=== PATIENT | female | born 1950 | race Caucasian/White ===

== ENCOUNTER 2017-01-08 06:56 | Observation (INO) ==
--- NOTE | 2017-01-08 07:35 | Emergency Department Note ---
Disposition Clinical Impression: Sinus tachycardia Chest pain Qualifiers: Chest pain type: unspecified Qualified Code(s): R07.9 - Chest pain, unspecified Disposition: Admitted As Inpatient Condition: Good Referrals: Kenneth Caballero DO [Primary Care Provider] - Forms: ED Satisfaction Letter General Adult HPI - General Chief complaint: ED Arrhythmia/Palpitations Stated complaint: "Got the racing heart" Time Seen by Provider: 01/08/17 07:17 Source: patient Limitations: no limitations Nursing Notes Reviewed: Yes Vital Signs Reviewed: Yes - History of Present Illness HPI Narrative: 66-year-old female who reports sudden onset of palpitations at 6 AM this morning. Onset while she was sleeping. It woke her up from sleep. She reports that this is happening her 2 times before in the past and she has been seen and discharged. She states this is similar to the prior 2 times. She is seeing her primary care physician about this as she is been diagnosed with sinus tachycardia. She takes metoprolol 25 mg twice a day. She denies missing any doses. She denies any caffeine use whatsoever. She also denies any illicit drug use. Other medical problems include diabetes, hyperlipidemia. She denies any dlep-ars-xaijsyl cold medications. She denies having any current chest pain, but had some earlier this morning. She denies a history of ischemic cardiac disease. She has no stents or bypass. She does not have a pacer defibrillator. She denies any recent illness except taking that she might be "getting a cold". This happened initially about a year ago and then a follow-up about 6 months ago. Pain Scale: 0 Improves with: nothing Worsens with: nothing Treatments Prior to Arrival: none - Related Data Home Medications Medication Instructions Recorded Confirmed GlipiZIDE [Glipizide ER] 10 mg PO DAILY 01/08/17 01/08/17 Metoprolol [Lopressor] 25 mg PO BID 01/08/17 01/08/17 Potassium Chloride [K-Tab ER] 20 meq PO DAILY 01/08/17 01/08/17 hydroCHLOROthiazide 25 mg PO DAILY 01/08/17 01/08/17 [Hydrochlorothiazide] Allergies Allergy/AdvReac Type Severity Reaction Status Date / Time Sulfa (Sulfonamide Allergy Hives Verified 07/13/16 20:02 Antibiotics) Tetracycline Allergy Hives Verified 07/13/16 20:02 All systems ED: reviewed and negative except as stated. Constitutional: Denies: fever ENT ED: Denies: throat pain Cardiovascular: Reports: palpitations. Denies: chest pain, dyspnea on exertion Respiratory: Denies: cough, dyspnea Gastrointestinal: Denies: abdominal pain, nausea, vomiting Genitourinary: Denies: dysuria Musculoskeletal: Denies: back pain Integumentary: Denies: rash Neurological: Denies: headache Endocrine: Denies: fatigue Past Medical History - Past Medical History Medical history: Reports: diabetes, hypertension Psychiatric history: Reports: no psych history - Social History Smoking Status: Never smoker Smokeless Tobacco Status: No Alcohol use: Reports: none Drug use: Reports: none Physical Exam - General Limitations: no limitations General appearance: alert, in no apparent distress - Head Head exam: atraumatic - Eye Eye exam: Present: normal appearance, PERRL - ENT ENT exam: normal exam, normal oropharynx - Neck Neck exam: Present: normal inspection - Chest Chest inspection: Present: normal inspection - Respiratory Respiratory exam: Present: normal lung sounds bilaterally. Absent: respiratory distress - Cardiovascular Cardiovascular exam: Present: normal rhythm, tachycardia - Abdominal Exam Abdominal exam: Present: soft, Non-Tender - Extremities Exam Extremities exam: Present: normal inspection - Back Exam Back exam: Present: normal inspection - Neurological Exam Neurological exam: Present: alert, oriented X3 - Psychiatric Psychiatric exam: Present: normal affect, normal mood - Skin Skin exam: Present: warm, dry Course Course Narrative: We will do a cardiac evaluation reevaluate. EKG shows sinus tachycardia with a rate of 132. VT interval is not shortened. There is no ST deviation. No T- wave inversions or signs of ischemia. Tachycardia did not resolve after lopressor or labetalol. Currently symptom free. Will admit for CP rule out and if needed a cardiology consult. Vital Signs Temperature 97.6 F 01/08/17 06:57 Pulse Rate 130 01/08/17 06:57 Respiratory Rate 20 01/08/17 06:57 Blood Pressure 157/98 01/08/17 06:57 O2 Sat by Pulse Oximetry 96 01/08/17 06:57 Temperature 97.6 F 01/08/17 06:57 Pulse Rate 119 01/08/17 09:05 Respiratory Rate 18 01/08/17 09:05 Blood Pressure 165/81 01/08/17 09:05 O2 Sat by Pulse Oximetry 96 01/08/17 09:05 Oxygen Delivery Oxygen Delivery Nasal Cannula Medical Decision Making - Medical Records Medical records reviewed: Yes I reviewed the patient's medical records. - Lab Data Lab results reviewed: Yes I reviewed the patient's lab results. Result diagrams: 01/08/17 07:55 01/08/17 07:55 Lab Results 01/08/17 01/08/17 01/08/17 Range/Units 07:55 07:55 07:55 WBC 7.2 (4.3-11.1) K/mcL RBC 4.62 (3.82-4.97) M/mcL Hgb 12.9 (11.5-15.4) g/dL Hct 40.5 (35.3-44.9) % MCV 87.7 (83.0-100.0) fL MCH 27.9 L (28.0-33.3) pg MCHC 31.9 (31.6-35.5) g/dL RDW 13.3 (11.5-14.5) % Plt Count 238 (140-400) K/mcL MPV 10.2 (9.4-12.4) fL Immature Gran % 0.3 (0-4) % Seg Neutrophils % 66.8 % Lymphocytes % 23.5 % Monocytes % 8.0 % Eosinophils % 0.8 % Basophils % 0.6 % Neutrophils # 4.8 (1.6-8.9) K/mcL Lymphocytes # 1.7 (0.6-4.6) K/mcL Monocytes # 0.6 (0.0-1.3) K/mcL Eosinophils # 0.1 (0.0-0.6) K/mcL Basophils # 0.0 (0.0-0.2) K/mcL PT 10.7 (9.4-12.1) Seconds INR 1.0 APTT 28.3 (26.0-36.0) Seconds D-Dimer (0-500) ng/mLFEU Sodium 138 (136-145) mEq/L Potassium 3.8 (3.5-4.5) mEq/L Chloride 101 (98-109) mEq/L Carbon Dioxide 27 (19-29) mEq/L BUN 11 (7-20) mg/dL Creatinine 0.69 (0.57-1.11) mg/dL Est GFR ( Amer) > 60 (> 60) Est GFR (Non-Af Amer) > 60 (> 60) BUN/Creatinine Ratio 16 (6-26) Glucose 186 H (70-99) mg/dL Calculated Osmolality 290 (280-300) Calcium 9.4 (8.6-10.8) mg/dL Troponin I (0-0.03) ng/mL TSH 1.743 (0.350-4.840) mcIU/mL 01/08/17 01/08/17 Range/Units 07:55 07:55 WBC (4.3-11.1) K/mcL RBC (3.82-4.97) M/mcL Hgb (11.5-15.4) g/dL Hct (35.3-44.9) % MCV (83.0-100.0) fL MCH (28.0-33.3) pg MCHC (31.6-35.5) g/dL RDW (11.5-14.5) % Plt Count (140-400) K/mcL MPV (9.4-12.4) fL Immature Gran % (0-4) % Seg Neutrophils % % Lymphocytes % % Monocytes % % Eosinophils % % Basophils % % Neutrophils # (1.6-8.9) K/mcL Lymphocytes # (0.6-4.6) K/mcL Monocytes # (0.0-1.3) K/mcL Eosinophils # (0.0-0.6) K/mcL Basophils # (0.0-0.2) K/mcL PT (9.4-12.1) Seconds INR APTT (26.0-36.0) Seconds D-Dimer 340 (0-500) ng/mLFEU Sodium (136-145) mEq/L Potassium (3.5-4.5) mEq/L Chloride (98-109) mEq/L Carbon Dioxide (19-29) mEq/L BUN (7-20) mg/dL Creatinine (0.57-1.11) mg/dL Est GFR ( Amer) (> 60) Est GFR (Non-Af Amer) (> 60) BUN/Creatinine Ratio (6-26) Glucose (70-99) mg/dL Calculated Osmolality (280-300) Calcium (8.6-10.8) mg/dL Troponin I 0.00 (0-0.03) ng/mL TSH (0.350-4.840) mcIU/mL - Radiology Data Radiology results reviewed: Yes I reviewed the patient's radiology results. - EKG Data EKG #1 EKG attestation: Yes I reviewed and interpreted this EKG. EKG shows normal: sinus rhythm Rate: tachycardia Rhythm: NSR [place]/QRS: normal Interpretation: other (Sinus tachycardia)
[2017-01-08] MEDS ORDERED: *HR* Labetalol 20 MG/4 ML SYRINGE IVP ONE (07:49)
--- NOTE | 2017-01-08 08:01 | Emergency Department Note ---
START Narrative - START START: I examined this patient and my medical decision-making was reviewed with the Resident Physician. I agree with the documented findings, disposition and treatment plan as described except to the extent set forth below. 66yo F here for heart racing and palpitations. hx of same about 6 months ago. woke pt up from her sleep. no chest pain. no sob. she denies any dvt or pe. no thyroid history. no supplements or energy drinks. no smoking or drugs. she takes daily lopressor for similar episode in past. will workup with labs, cxr, ekg. she appears well. no distress
[2017-01-08 08:07] LABS: Basophils % 0.6 %; Eosinophils # 0.1 K/mcL (0.0-0.6); Eosinophils % 0.8 %; Hematocrit 40.5 % (35.3-44.9); Hemoglobin 12.9 g/dL (11.5-15.4); Immature Granulocytes % 0.3 % (0-4); Lymphocytes # 1.7 K/mcL (0.6-4.6); Lymphocytes % 23.5 %; Mean Corpuscular HGB Conc 31.9 g/dL (31.6-35.5); Mean Corpuscular Hemoglobin 27.9 pg (28.0-33.3); Mean Corpuscular Volume 87.7 fL (83.0-100.0); Mean Platelet Volume 10.2 fL (9.4-12.4); Monocytes # 0.6 K/mcL (0.0-1.3); Neutrophils # 4.8 K/mcL (1.6-8.9); Platelet Count 238 K/mcL (140-400); Red Blood Count 4.62 M/mcL (3.82-4.97); Red Cell Distribution Width 13.3 % (11.5-14.5); Segmented Neutrophils % 66.8 %
[2017-01-08 08:08] LABS: Prothrombin Time 10.7 Seconds (9.4-12.1)
[2017-01-08 08:11] LABS: Activated Partial Thrombo Time 28.3 Seconds (26.0-36.0)
[2017-01-08 08:40] LABS: Thyroid Stimulating Hormone 1.743 mcIU/mL (0.350-4.840)
[2017-01-08 08:55] LABS: BUN/Creatinine Ratio 16 (6-26); Blood Urea Nitrogen 11 mg/dL (7-20); Calcium 9.4 mg/dL (8.6-10.8); Carbon Dioxide 27 mEq/L (19-29); Chloride 101 mEq/L (98-109); Glucose 186 mg/dL (70-99); Osmolality,Calculated 290 (280-300); Potassium 3.8 mEq/L (3.5-4.5); Sodium 138 mEq/L (136-145); eGFR For African Americans > 60 (> 60); eGFR For Non-African Americans > 60 (> 60)
[2017-01-08] MEDS: *HR* Metoprolol 5 MG/5 ML VIAL IVP ONE (09:31)
[2017-01-08] MEDS ORDERED: Ondansetron 4 MG/2 ML VIAL IVP PRN (13:00)
[2017-01-08] MEDS ORDERED: Acetaminophen 325 MG TABLET PO PRN (13:00)
[2017-01-08] MEDS ORDERED: Naloxone 0.4 MG/ML INJ IVP PRN (13:00)
[2017-01-08] MEDS ORDERED: D5% in Water 1,000 ML IVC PRN (13:09)
[2017-01-08] MEDS ORDERED: *HR* Dextrose 50 % in Water (Syg) 50 ML SYRINGE IVP PRN (13:09)
[2017-01-08] MEDS ORDERED: Dextrose Gel 15 GM PO PRN ×2 (13:09)
[2017-01-08] MEDS ORDERED: Nitroglycerin 0.4 MG TAB.SUBL SL PRN (13:11)
[2017-01-08 13:24] LABS: Magnesium 1.9 mg/dL (1.6-2.6)
--- NOTE | 2017-01-08 13:24 | Internal Med History&Physical ---
<Alexandrea Donovan - Last Filed: 01/08/17 13:39> Date of Encounter: 01/08/17 Time of Encounter: 13:12 Assessment and Plan (1) Chest pain Current visit: Yes Status: Acute 1 patient has been experiencing intermittent chest pain as well as palpitations. She has a history of tachycardia and presented today with heart rate of 130 to 140-she was given labetalol as well as l Lopressor which did improve her rate. She did have a cardiac stress test in September which was negative for ischemia Cardiac troponin was 0 which we will continue to trend 2 continuous cardiac monitoring 3 we will obtain a cardiac echo 4 continue with metoprolol and statin we will check lipid profile we will add aspirin 5 nitroglycerin as needed for chest pain 6 consult cardiology Qualifiers: Chest pain type: unspecified Qualified Code(s): R07.9 - Chest pain, unspecified (2) Sinus tachycardia Current visit: Yes Status: Acute 1 patient has had a history of sinus tachycardia was placed on metoprolol 25 mg twice a day. She has been experiencing intermittent chest pain and palpitations. On presentation her heart rate was 130-140. We will increase her metoprolol to 50 mg twice a day 2 continue his cardiac monitoring 3 obtain cardiac echo 4 consult cardiology (3) HTN (hypertension) Current visit: Yes Status: Acute 1 patient did experience some elevated blood pressure during tachycardic episode. We will continue with her hydrochlorothiazide and increase her metoprolol to 50 mg twice a day Qualifiers: Hypertension type: essential hypertension Qualified Code(s): I10 - Essential (primary) hypertension Internal Medicine - H&P: HPI Chief complaint: Palpitations Admitted From: Emergency Dept Plans for Post Hospital Care: Home History of present illness: Ms. Booth is a 66 year old female has no history of hypertension diabetes hyperlipidemia tachycardia. According the patient she was awakened approximately 5 AM this morning said she did not feel very well somewhat nauseated she did check her blood pressure was 1 2928 her heart rate is 131 she rechecked it again, heart rate was 140 at that time. She did experience some slight left-sided chest pain which she states was fleeting. There were no aggravating or relieving factors it is nonradiating it resolved on its own. She does admit to previous history of tachycardia. Earlier in the year she was experiencing palpitations she did wear a Holter monitor which did not reveal any arrhythmias. She did undergo a cardiac stress in September which was negative for ischemia. She was placed on metoprolol 25 mg twice a day which she states has controlled her palpitations until this past Thursday. She denies any use of caffeine, diet pills, or other stimulants. 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 She states since this Thursday she has not felt well she has just felt off. She has had intermittent nausea lightheadedness and chest pain. She presented to the ER with the above complaints. Upon presentation patient's heart rate was 130s sinus. She was given labetalol as well as IV metoprolol which did bring down her heart rate. Labwork was obtained and was unremarkable troponin was 0. EKG sinus tachycardia with no ST-T wave abnormalities noted. Chest x-ray was negative. She has been admitted for further workup evaluation. Presently patient denies any chest pain or shortness of breath she does appear the restaurant distress. Her lung sounds are clear heart sounds are regular S1 and S2 with no rubs, gallops murmurs noted. Abram heart rate is in the 90s blood pressure was systolic 160s. She denies any palpitations. I reviewed this case with Dr. Meng who agrees with the case. Past Med Surg Social Fam HX - Past Medical History Medical history: diabetes, hypertension Psychiatric history: no psych history - Social History Smoking Status: Never smoker Smokeless Tobacco Status: No Alcohol use: none Drug use: none - Family History Mother Living Status: Hx Family Cardiac Disorders: Yes (cad) Father Living Status: Hx Family Cardiac Disorders: Yes (CAD) Internal Medicine - H&P: Meds GlipiZIDE [Glipizide ER] 10 mg PO DAILY 01/08/17 [History] Metoprolol [Lopressor] 25 mg PO BID 01/08/17 [History] Potassium Chloride [K-Tab ER] 20 meq PO DAILY 01/08/17 [History] hydroCHLOROthiazide [Hydrochlorothiazide] 25 mg PO DAILY 01/08/17 [History] 3 Allergy/AdvReac Type Severity Reaction Status Date / Time Sulfa (Sulfonamide Allergy Hives Verified 07/13/16 20:02 Antibiotics) Tetracycline Allergy Hives Verified 07/13/16 20:02 All Systems PM: A 10-system review of systems was performed and is negative for pertinent findings except as documented above in the HPI. - Constitutional Constitutional: no chills, no fever(s), no night sweats - EENT Eyes: no change in vision, no discharge, no pain, no photophobia Ears: no ear discharge, no ear pain, no tinnitus Nose, mouth and throat: no dysphagia, no nasal discharge, no neck pain, no sore throat - Cardiovascular Cardiovascular ROS IM: chest pain, lightheadedness, palpitations - Respiratory Respiratory: no cough, no dyspnea, no wheezing, no excessive phlegm production - Gastrointestinal Gastrointestinal: no abdominal pain, no diarrhea, no hematemesis, no hematochezia, no melena, no nausea, no vomiting - Genitourinary Genitourinary: no change in urinary stream, no dysuria, no flank pain, no hematuria - Musculoskeletal Musculoskeletal ROS IM: no numbness, no tingling - Integumentary Integumentary IM: no rash, no unusual bruising - Neurological Neurological ROS: no confusion, no convulsions, no focal weakness, no numbness, no tingling, no tremor(s) - Hematologic/Lymphatic Hematologic/Lymphatic: no easy bruising - Constitutional Vitals: Temp Pulse Resp BP Pulse Ox 97.6 F 81 18 160/89 96 01/08/17 06:57 01/08/17 10:35 01/08/17 11:24 01/08/17 11:24 01/08/17 10:35 General appearance: Present: A&O X 3 - Head Head exam: Present: atraumatic, normocephalic - Eye Eye exam: Present: PERRL, conjuntiva pink, sclera anicteric Pupils: Present: PERRL - Neck Neck exam general surgery: Present: supple, trachea midline. Absent: lymphadenopathy - Respiratory Respiratory exam: Present: CTAB. Absent: accessory muscle use, rales, rhonchi, wheezes - Cardiovascular Cardiovascular exam: Present: RRR, +S1, +S2. Absent: diastolic murmur, gallop, rubs, systolic murmur - GI/Abdominal GI/Abdominal exam: Present: normal bowel sounds, soft, no peritoneal signs. Absent: distended, tenderness - Extremities Exam Extremities exam: Present: warm, radial pulses palpable and symmetrical. Absent : calf tenderness, cyanotic, pedal edema - Neurological Exam Neurological exam: Present: CN II-XII intact, oriented X3, no focal deficits. Absent: pronater drift, facial droop, speech deficit - Skin Skin exam: Present: dry, intact Internal Med - H&P Results - Labs CBC & Chem 7: 01/08/17 07:55 01/08/17 07:55 - EKG Data Rate: tachycardia - EKG Data Prior EKG available for review: yes When compared to previous EKG: there is no significant change - Diagnostic Studies Other Images Additional comments: Chest X-Ray 01/08/17 07:18 IMPRESSION: No acute cardiopulmonary disease D/ / Piotr Cohen MD / Piotr Cohen MD Interpreting Provider: Piotr Cohen MD <Jose Meng - Last Filed: 01/08/17 18:01> Date of Encounter: 01/08/17 Internal Medicine - H&P: HPI History of present illness: Ms. Booth is a 66 year old female All Systems PM: A 10-system review of systems was performed and is negative for pertinent findings except as documented above in the HPI. - Constitutional Vitals: Temp Pulse Resp BP Pulse Ox 97.6 F 81 18 160/89 96 01/08/17 06:57 01/08/17 10:35 01/08/17 11:24 01/08/17 11:24 01/08/17 10:35 Internal Med - H&P Results - Labs CBC & Chem 7: 01/08/17 07:55 01/08/17 07:55 Labs: Cardiac Enzymes 01/08/17 Range/Units 13:41 Troponin I 0.00 (0-0.03) ng/mL - Attending Attestation I personally interviewed and examined this pt. I reviewed all labs and studies. I agree with the findings, assessment and plan of LINA Donovan. Agree with increasing BB> Due to recurrent nature of SVT will consult cardiology. PT currently improved.
[2017-01-08] MEDS ORDERED: Aspirin 325 MG TABLET PO ONE (13:40)
[2017-01-08] MEDS: Insulin LISPRO 300 UNITS/3 ML VIAL SQ SCH (18:16)
[2017-01-08] MEDS ORDERED: Insulin LISPRO 300 UNITS/3 ML VIAL SQ SCH (21:00)
[2017-01-09 05:26] LABS: Basophils % 0.4 %; Eosinophils # 0.1 K/mcL (0.0-0.6); Eosinophils % 0.9 %; Hemoglobin 12.3 g/dL (11.5-15.4); Immature Granulocytes % 0.3 % (0-4); Lymphocytes # 2.6 K/mcL (0.6-4.6); Lymphocytes % 28.7 %; Mean Corpuscular HGB Conc 32.4 g/dL (31.6-35.5); Mean Corpuscular Volume 86.6 fL (83.0-100.0); Mean Platelet Volume 10.5 fL (9.4-12.4); Monocytes # 0.8 K/mcL (0.0-1.3); Monocytes % 9.3 %; Neutrophils # 5.4 K/mcL (1.6-8.9); Platelet Count 259 K/mcL (140-400); Red Blood Count 4.39 M/mcL (3.82-4.97); Red Cell Distribution Width 13.3 % (11.5-14.5); Segmented Neutrophils % 60.4 %
[2017-01-09 05:42] LABS: BUN/Creatinine Ratio 15 (6-26); Blood Urea Nitrogen 10 mg/dL (7-20); Calcium 9.3 mg/dL (8.6-10.8); Carbon Dioxide 27 mEq/L (19-29); Chloride 102 mEq/L (98-109); Cholesterol 127 mg/dL (< 200); Glucose 178 mg/dL (70-99); HDL Cholesterol 43 mg/dL (40-59); LDL Cholesterol,Calculated 60 mg/dL (0-99); Magnesium 1.6 mg/dL (1.6-2.6); Osmolality,Calculated 287 (280-300); Potassium 3.7 mEq/L (3.5-4.5); Sodium 137 mEq/L (136-145); Triglycerides 119 mg/dL (< 150); eGFR For African Americans > 60 (> 60); eGFR For Non-African Americans > 60 (> 60)
[2017-01-09] MEDS: Insulin LISPRO 300 UNITS/3 ML VIAL SQ SCH ×2 (08:38→12:12)
[2017-01-09] MEDS ORDERED: hydroCHLOROthiazide 25 MG TABLET PO SCH (09:00)
[2017-01-09] MEDS ORDERED: Aspirin 81 MG TAB.CHEW PO SCH (09:00)
[2017-01-09 11:14] VITALS: BP 153/88
--- NOTE | 2017-01-09 11:19 | Cardiology Consult Note ---
Date of Encounter: 01/09/17 Time of Encounter: 09:30 Assessment and Plan (1) Chest pain Current Visit: Yes Status: Resolved -atypical presentation of chest pain, doesn't appear to be cardiac in origin. -troponins 0.00 x2 -EKG shows paroxysmal atrial tachycardia, no ischemic changes -(10/21/16) Echo largely unremarkable -LVEF 65%; normal LV size, LV systolic function, and mild diastolic dysfunction of LV; no significant valvular dysfunction; all LV wall segments normal motion -Nuclear stress test -(07/28/16) no significant EKG changes; gated LVEF > 70%; perfusion imaging negative for ichemia or infarct -(02/24/11) LV not dilated; gated EF 75%; no evidence stress-induced ischemia ; no wall motion abnormalities -48h Holter monitor -(07/09/16) baseline rhythm is normal sinus; occasional PVCs -scheduled for outpatient f/u with [facility] cardiology (2) Atrial tachycardia Current Visit: Yes Status: Acute -resolved, pt's heart rate now stable in range of 85-95 bpm -increased dose of metoprolol (now 50mg PO BID) to aid in lowering heart rate (3) HTN (hypertension) Current Visit: Yes Status: Chronic -Blood pressure not at goal for a diabetic, increased metoprolol to 50mg PO BID and continue HCTZ at 25mg PO daily. Qualifiers: Hypertension type: essential hypertension Qualified Code(s): I10 - Essential (primary) hypertension Discussion w patient/family: The assessment and plan as outlined above was discussed with the patient and/or family members who expressed understanding and agreement. All questions were answered. Thank you for involving us in the care of your patient. Please call with any questions. History of Present Illness Consult date: 01/09/17 Consult reason: chest pain, sinus tachycardia Chief complaint: "heart racing" History of present illness: Ms. Booth is a 66 year old female with PMH of HTN, HLD, and IDDM who presented to [facility] ED 01/08 with c/o "heart racing" and palpitations that she noticed earlier that morning when getting out of bed to go pee. Pt also c/o Lt- sided chest pain described as stabbing, intermittent, and doesn't radiate. She states nothing improved or worsened her symptoms, chest pain stopped on its own. Pt has been seen in ED twice (04/2016 and 08/2015) for similar complaints. She denies h/o using tobacco, illicit drugs, EtOH, diet pills, energy drinks; has 2 cups decaffeinated coffee a day at home. Admits associated nausea and diaphoresis & denies associated emesis and dyspnea yesterday. Pt admitted to inpatient by hospitalists, cardiology consulted for cardiac evaluation of her chest pain and tachycardia. Troponins negative x 2. Today, pt admits non- productive cough at her baseline and dyspnea on exertion. Pt currently denies chest pain, chest pressure, lower extremity edema, palpitations, and wheezing. Past Med Surg Social Fam HX - Past Medical History Medical history: diabetes, hypertension Psychiatric history: no psych history - Social History Smoking Status: Never smoker Smokeless Tobacco Status: No Alcohol use: none Drug use: none - Family History Mother Living Status: Hx Family Cardiac Disorders: Yes (cad) Father Living Status: Hx Family Cardiac Disorders: Yes (CAD) Medications and Allergies GlipiZIDE [Glipizide ER] 10 mg PO DAILY 01/08/17 [History] Potassium Chloride [K-Tab ER] 20 meq PO DAILY 01/08/17 [History] hydroCHLOROthiazide [Hydrochlorothiazide] 25 mg PO DAILY 01/08/17 [History] Metoprolol [Lopressor] 50 mg PO BID #60 tab 01/09/17 [Rx] 3 Allergy/AdvReac Type Severity Reaction Status Date / Time Sulfa (Sulfonamide Allergy Hives Verified 07/13/16 20:02 Antibiotics) Tetracycline Allergy Hives Verified 07/13/16 20:02 All Systems Review: A 10-system review of systems was performed and is negative for pertinent findings except as documented above in the HPI. - Constitutional Constitutional: chills (last night), no fever(s), no night sweats - Cardiovascular Cardiovascular: as per HPI, dyspnea on exertion (last night walking to bathroom from bed), rapid heart rate, no chest pain with exertion, no diaphoresis, no leg edema - Respiratory Respiratory: cough (baseline for pt, non productive), dyspnea (last night walking to bathroom from bed) - Gastrointestinal Gastrointestinal: nausea, other (denies emesis), no abdominal pain, no constipation, no diarrhea Physical Examination Vital Signs, Last 4 Hours Temp Pulse Resp BP Pulse Ox 01/09/17 11:09 98.0 F 85 16 153/88 96 General: Conversant, No Apparent Distress HEENT: Mucus Membranes Moist Cardiac: Reg Rate and Rhythm, Normal S1 and S2, No Murmur Lungs: Normal Breath Sounds, No Wheeze, Rales, Rhonchi, Other (normal respiratory effort) Neuro: Alert and responsive, No focal deficits noted Skin: No rashes noted on visualized skin Musculoskeletal: No Chest Wall Tenderness, Other (unable to illicit "stabbing" pain ) Extremities: No Cyanosis, No Edema, Normal Pulses (palpable b/l radial and dorsalis pedis ) Results 01/09/17 04:44 01/09/17 04:44 Lab Results-reviewed 01/08/17 01/08/17 01/09/17 13:41 20:06 04:44 WBC 9.0 Hgb 12.3 Hct 38.0 Plt Count 259 Sodium Potassium Chloride Carbon Dioxide BUN Creatinine Glucose Calcium Magnesium Troponin I 0.00 0.00 01/09/17 04:44 WBC Hgb Hct Plt Count Sodium 137 Potassium 3.7 Chloride 102 Carbon Dioxide 27 BUN 10 Creatinine 0.65 Glucose 178 H Calcium 9.3 Magnesium 1.6 Troponin I - Imaging and Cardiology Chest Xray: report reviewed (No acute cardiopulmonary dz; compared with CXR 09/24) Stress Test: other (02/24/11 stress test report reviewed 07/28/16 stress test report reviewed) Echo: other (10/22/15 echo report reviewed) Holter: other (07/09/16 48h Holter monitor report reviewed) - EKG Interpretation EKG results cardiology: personally reviewed, other (tachycardic 132 bpm; inverted P waves noted in II and aVF; normal axis) Consult Discharge Plan - Plan Additional Instructions: Please follow up with your primary care physician within five days after your discharge from the hospital. 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 Your home dose of Metoprolol has been increased to 50mg twice a day, please take this medication as prescribed. Please closely monitor your blood pressure, hold your blood pressure medications (Metoprolol and Hydrocholorthiazide) if you systolic blood pressure is less than 100 and inform your primary care physician. Resume all other home medications as prescribed by your primary care physician. Referrals: Moises Newton MD [Partnered Physician] - 02/04/17 10:30 am Kenneth Caballero DO [Primary Care Provider] - 01/16/17 12:00 pm Prescriptions: Metoprolol [Lopressor] 50 mg PO BID #60 tab
--- NOTE | 2017-01-09 14:06 | Discharge Summary ---
Date of Encounter: 01/09/17 Time of Encounter: 14:02 - Discharge Diagnosis (1) Sinus tachycardia Priority: Primary Status: Resolved (2) Chest pain Priority: Primary Status: Resolved Qualifiers: Chest pain type: unspecified Qualified Code(s): R07.9 - Chest pain, unspecified (3) HTN (hypertension) Priority: Secondary Status: Chronic Qualifiers: Hypertension type: essential hypertension Qualified Code(s): I10 - Essential (primary) hypertension - Discharge Medications Prescriptions: Metoprolol [Lopressor] 50 mg PO BID #60 tab Home Medications: GlipiZIDE [Glipizide ER] 10 mg PO DAILY 01/08/17 [History] Potassium Chloride [K-Tab ER] 20 meq PO DAILY 01/08/17 [History] hydroCHLOROthiazide [Hydrochlorothiazide] 25 mg PO DAILY 01/08/17 [History] Metoprolol [Lopressor] 50 mg PO BID #60 tab 01/09/17 [Rx] Allergies/Adverse Reactions: 3 Allergy/AdvReac Type Severity Reaction Status Date / Time Sulfa (Sulfonamide Allergy Hives Verified 07/13/16 20:02 Antibiotics) Tetracycline Allergy Hives Verified 07/13/16 20:02 Procedures/tests Complete & Pending: Procedures Performed prior 72 hours Category Date Time Status EV echocardiogram Stat Y 01/08/17 13:08 Completed Date of admission: 01/08/17 10:37 Primary care physician: Laura Rios Consults: 01/08/17 13:05 Consult to Cardiology [CONS] Routine Comment: Consulting Provider: Cardiology Elaine Reason for Consult: cp palpitations Time Notified: 13:05 Call Completed: Yes Discharging clinician: Estephania Fisher Anticipated date of discharge: 01/09/17 - Patient Status Disposition: Home, Self-Care Condition: Good Functional capacity at discharge: independent ambulation Overall status at discharge: patient is back to baseline - Discharge Instructions Follow Up With: Kenneth Caballero DO [Primary Care Provider] - Additional Instructions: Please follow up with your primary care physician within five days after your discharge from the hospital. 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 Your home dose of Metoprolol has been increased to 50mg twice a day, please take this medication as prescribed. Please closely monitor your blood pressure, hold your blood pressure medications (Metoprolol and Hydrocholorthiazide) if you systolic blood pressure is less than 100 and inform your primary care physician. Resume all other home medications as prescribed by your primary care physician. - Diet and Activity Activity: resume usual activities as tolerated Diet: diabetic diet, low salt diet Hospital course: Ms. Booth is a 66 year old female with PMH of HTN, DM, sinus tachycardia who was admitted for evaluation of chest pain and sinus tachycardia. Her home dose of Metoprolol was increased which resolved her tachycardia. Her Serial TNI were negative and she has remained chest pain free for the duration of her hospitalization. She was seen by cardiology and patient to continue with the increased dose of metoprolol. Pt is hemodynamically stable, denies any chest pain, HR controlled. She will be discharged to home with follow up with PCP and cardiology. Pt demonstrates understanding of her diagnosis and agrees with the discharge care and plan. - Time Spent with Patient Total time spent providing and/or coordinating discharge services: Less than 30 minutes - Constitutional Vitals: Temp Pulse Resp BP Pulse Ox 98.0 F 85 16 153/88 96 01/09/17 11:09 01/09/17 11:09 01/09/17 11:09 01/09/17 11:09 01/09/17 11:09 General appearance: Present: cooperative, A&O X 3, morbidly obese, pleasant, no acute distress - Head Head exam: Present: atraumatic, normocephalic - Eye Eye exam: Present: conjuntiva pink, sclera anicteric - Respiratory Respiratory exam: Present: CTAB. Absent: accessory muscle use, rales, rhonchi, wheezes - Cardiovascular Cardiovascular exam: Present: RRR, +S1, +S2. Absent: diastolic murmur, gallop, rubs, systolic murmur - GI/Abdominal GI/Abdominal exam: Present: normal bowel sounds, soft, no peritoneal signs. Absent: distended, tenderness - Extremities Exam Extremities exam: Present: warm, radial pulses palpable and symmetrical. Absent : calf tenderness - Neurological Exam Neurological exam: Present: alert, oriented X3
--- NOTE | 2017-01-12 20:48 | Electrocardiograph Report ---
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
== END 2017-01-09 15:03 | disposition home or self-care (01) ==
LOC: EMEROO 06:56 → 3ANU 06:56
PROVIDERS: ADMIT Registered Nurse; ATTEND Registered Nurse

== ENCOUNTER 2017-10-22 23:19 | Inpatient (IN) ==
[2017-10-22] MEDS ORDERED: 0.9 % Sodium Chloride 1,000 ML IVC ONE (23:32)
[2017-10-22] MEDS ORDERED: Ondansetron 4 MG/2 ML VIAL IVP ONE (23:32)
--- NOTE | 2017-10-22 23:36 | Emergency Department Note ---
Disposition Clinical Impression: Acute hyponatremia Nausea and vomiting Qualifiers: Vomiting type: unspecified Vomiting Intractability: non-intractable Qualified Code(s): R11.2 - Nausea with vomiting, unspecified Disposition: Admitted As Inpatient Condition: Undetermined Referrals: Kenneth Caballero DO [Primary Care Provider] - Forms: ED Satisfaction Letter Time of Disposition: 01:04 General Adult HPI - General Chief complaint: ED Nausea/Vomiting/Diarrhea Stated complaint: cough, n/v Time Seen by Provider: 10/22/17 23:26 Source: patient Mode of arrival: wheelchair Limitations: no limitations Nursing Notes Reviewed: Yes Vital Signs Reviewed: Yes - History of Present Illness HPI Narrative: 67-year-old female with history of diabetes, arrives to the emergency department with a cough over the course of the past 3 weeks. The patient went to PCPs office and she was prescribed doxycycline. The patient states she has an allergy to tetracycline but was unaware that these were related. The patient states that she has been experiencing a cough since then. In addition the patient states that she has had a large amount of nausea. The patient does state that she did have the nausea prior to taking the doxycycline. The patient states she took it for 2 days but states that she cannot take he coughed she has not slept in the past 2 days. In addition the patient states that she was prescribed Levaquin today by PCP because she cannot take the doxycycline that she took one dose and started having multiple episodes of vomiting. The patient denies any associated rash, abdominal pain, fever, chills , chest pain, difficulty breathing. Patient is resting comfortably in the room at this time but states she feels very weak. Pain Scale: 0 - Related Data Home Medications Medication Instructions Recorded Confirmed GlipiZIDE [Glipizide ER] 10 mg PO DAILY 01/08/17 01/08/17 Potassium Chloride [K-Tab ER] 20 meq PO DAILY 01/08/17 01/08/17 hydroCHLOROthiazide 25 mg PO DAILY 01/08/17 01/08/17 [Hydrochlorothiazide] Previous Rx's Medication Instructions Recorded Metoprolol [Lopressor] 50 mg PO BID #60 tab 01/09/17 Metoprolol [Lopressor] 50 mg PO BID 20 Days #40 tablet 06/25/17 Allergies Allergy/AdvReac Type Severity Reaction Status Date / Time Sulfa (Sulfonamide Allergy Hives Verified 10/22/17 23:22 Antibiotics) Tetracycline Allergy Hives Verified 10/22/17 23:22 All systems ED: reviewed and negative except as stated. Constitutional: Reports: weakness. Denies: fever, chills Eyes: Denies: eye pain ENT ED: Denies: throat pain, epistaxis, congestion Cardiovascular: Denies: chest pain Respiratory: Reports: cough, sputum production. Denies: dyspnea, hemoptysis, stridor Gastrointestinal: Reports: nausea, vomiting. Denies: abdominal pain, diarrhea, constipation, hematemesis, melena, hematochezia Genitourinary: Denies: urgency, dysuria Musculoskeletal: Denies: back pain, neck pain Integumentary: Denies: rash Neurological: Denies: headache Past Medical History - Past Medical History Attestation: Yes The following information was validated with the patient. 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 - Social History Smoking Status: Never smoker Smokeless Tobacco Status: No Alcohol use: Reports: none Drug use: Reports: none Physical Exam - General Limitations: no limitations General appearance: alert, in no apparent distress - Head Head exam: atraumatic, normocephalic, normal inspection - Eye Eye exam: Present: normal appearance, PERRL, EOMI - ENT ENT exam: normal exam, normal oropharynx, mucous membranes moist - Neck Neck exam: Present: normal inspection, full ROM, trachea midline - Chest Chest inspection: Present: normal inspection, symmetric chest wall rise - Respiratory Respiratory exam: Present: normal lung sounds bilaterally - Cardiovascular Cardiovascular exam: Present: normal rhythm, tachycardia, normal heart sounds - Abdominal Exam Abdominal exam: Present: soft, Non-Tender. Absent: tenderness, distention, guarding, rebound, rigidity - Extremities Exam Extremities exam: Present: normal inspection, full ROM. Absent: tenderness, pedal edema - Neurological Exam Neurological exam: Present: alert, oriented X3 - Skin Skin exam: Present: warm, dry, intact, normal color Course Vital Signs Temperature 98.4 F 10/22/17 23:20 Pulse Rate 108 10/22/17 23:20 Respiratory Rate 16 10/22/17 23:20 Blood Pressure 189/94 10/22/17 23:20 O2 Sat by Pulse Oximetry 97 06/28/18 23:20 Temperature 98.4 F 10/22/17 23:56 Pulse Rate 108 10/22/17 23:56 Respiratory Rate 16 10/22/17 23:56 Blood Pressure 189/94 10/22/17 23:56 O2 Sat by Pulse Oximetry 98 10/22/17 23:56 Oxygen Delivery Oxygen Delivery Room Air Medical Decision Making - MDM Narrative Medical decision making narrative: Workup in the emergency department demonstrates critically low sodium level at 119. A spoke with Dr. Julian in nephrology recommended fluid restriction. No other recommendations. We will admit the patient to the hospital at this time. Accepted by Dr. Burnham. Patient made aware and agrees to plan. No further questions or concerns noted at this time. - Lab Data Lab results reviewed: Yes I reviewed the patient's lab results. Result diagrams: 10/22/17 23:51 10/22/17 23:51 Lab Results 10/22/17 10/22/17 10/22/17 Range/Units 23:51 23:51 23:59 WBC 11.5 H (4.3-11.1) K/mcL RBC 4.23 (3.82-4.97) M/mcL Hgb 12.9 (11.5-15.4) g/dL Hct 36.1 (35.3-44.9) % MCV 85.3 (83.0-100.0) fL MCH 30.5 (28.0-33.3) pg MCHC 35.7 H (31.6-35.5) g/dL RDW 12.4 (11.5-14.5) % Plt Count 310 (140-400) K/mcL MPV 10.0 (9.4-12.4) fL Immature Gran % 0.3 (0-4) % Seg Neutrophils % 71.5 % Lymphocytes % 15.4 % Monocytes % 10.9 % Eosinophils % 1.6 % Basophils % 0.3 % Neutrophils # 8.2 (1.6-8.9) K/mcL Lymphocytes # 1.8 (0.6-4.6) K/mcL Monocytes # 1.3 (0.0-1.3) K/mcL Eosinophils # 0.2 (0.0-0.6) K/mcL Basophils # 0.0 (0.0-0.2) K/mcL VBG pH 7.49 H (7.32-7.42) pH Units VBG pCO2 33 L (41-51) mmHg VBG pO2 152 H (25-50) mmHg VBG HCO3 25 (21-27) mEq/L Sodium 119 L* (136-145) mEq/L Potassium 3.5 (3.5-5.1) mEq/L Chloride 83 L (98-107) mEq/L Carbon Dioxide 23 (23-29) mEq/L BUN 8 (8-23) mg/dL Creatinine 0.51 L (0.60-1.20) mg/dL Est GFR ( Amer) > 60 (> 60) Est GFR (Non-Af Amer) > 60 (> 60) BUN/Creatinine Ratio 16 (6-26) Glucose 133 H (70-105) mg/dL Calculated Osmolality 248 L (280-300) Calcium 9.2 (8.6-10.3) mg/dL Total Bilirubin 0.9 (0.3-1.0) mg/dL AST 29 (13-39) Units/L ALT 20 (7-52) Units/L Alkaline Phosphatase 70 (34-104) Units/L Troponin I < 0.03 (< 0.04) ng/mL Serum Total Protein 6.6 (6.4-8.9) g/dL Albumin 4.1 (3.5-5.7) g/dL Globulin 2.5 (2.4-3.5) g/dL Albumin/Globulin Ratio 1.6 (1.1-2.2) Urine Color (Yellow) Urine Clarity (Clear) Urine pH (5.0-8.0) pH Units Ur Specific [place] (1.010-1.025) Urine Protein (Neg-Trace) mg/dL Urine Glucose (UA) (Normal) mg/dL Urine Ketones (Negative) mg/dL Urine Blood (Negative) Urine Nitrite (Negative) Urine Bilirubin (Negative) Urine Urobilinogen (Normal) mg/dL Ur Leukocyte Esterase (Negative) Ur Culture Indicated? (NO) 10/23/17 Range/Units 00:30 WBC (4.3-11.1) K/mcL RBC (3.82-4.97) M/mcL Hgb (11.5-15.4) g/dL Hct (35.3-44.9) % MCV (83.0-100.0) fL MCH (28.0-33.3) pg MCHC (31.6-35.5) g/dL RDW (11.5-14.5) % Plt Count (140-400) K/mcL MPV (9.4-12.4) fL Immature Gran % (0-4) % Seg Neutrophils % % Lymphocytes % % Monocytes % % Eosinophils % % Basophils % % Neutrophils # (1.6-8.9) K/mcL Lymphocytes # (0.6-4.6) K/mcL Monocytes # (0.0-1.3) K/mcL Eosinophils # (0.0-0.6) K/mcL Basophils # (0.0-0.2) K/mcL VBG pH (7.32-7.42) pH Units VBG pCO2 (41-51) mmHg VBG pO2 (25-50) mmHg VBG HCO3 (21-27) mEq/L Sodium (136-145) mEq/L Potassium (3.5-5.1) mEq/L Chloride (98-107) mEq/L Carbon Dioxide (23-29) mEq/L BUN (8-23) mg/dL Creatinine (0.60-1.20) mg/dL Est GFR ( Amer) (> 60) Est GFR (Non-Af Amer) (> 60) BUN/Creatinine Ratio (6-26) Glucose (70-105) mg/dL Calculated Osmolality (280-300) Calcium (8.6-10.3) mg/dL Total Bilirubin (0.3-1.0) mg/dL AST (13-39) Units/L ALT (7-52) Units/L Alkaline Phosphatase (34-104) Units/L Troponin I (< 0.04) ng/mL Serum Total Protein (6.4-8.9) g/dL Albumin (3.5-5.7) g/dL Globulin (2.4-3.5) g/dL Albumin/Globulin Ratio (1.1-2.2) Urine Color Yellow (Yellow) Urine Clarity Clear (Clear) Urine pH 7.0 (5.0-8.0) pH Units Ur Specific [place] 1.018 (1.010-1.025) Urine Protein Negative (Neg-Trace) mg/dL Urine Glucose (UA) Normal (Normal) mg/dL Urine Ketones 40 H (Negative) mg/dL Urine Blood Negative (Negative) Urine Nitrite Negative (Negative) Urine Bilirubin Negative (Negative) Urine Urobilinogen Normal (Normal) mg/dL Ur Leukocyte Esterase Negative (Negative) Ur Culture Indicated? NO (NO) - Radiology Data Radiology results reviewed: Yes I reviewed the patient's radiology results. Chest X-Ray 10/22/17 23:32 IMPRESSION: Negative portable chest. D/ / Osmani Gonzalez MD / Osmani Gonzalez MD Interpreting Provider: Osmani Gonzalez MD - EKG Data EKG #1 EKG attestation: Yes I reviewed and interpreted this EKG. EKG results narrative: Heart rate 102 beats for minute. Sinus tachycardia. No ST elevation or ST depression noted. No acute changes noted.
[2017-10-23 00:02] LABS: VBG HCO3 25 mEq/L (21-27); VBG PCO2 33 mmHg (41-51); VBG PH 7.49 pH Units (7.32-7.42); VBG PO2 152 mmHg (25-50)
[2017-10-23 00:20] LABS: Basophils % 0.3 %; Eosinophils # 0.2 K/mcL (0.0-0.6); Eosinophils % 1.6 %; Hematocrit 36.1 % (35.3-44.9); Hemoglobin 12.9 g/dL (11.5-15.4); Immature Granulocytes % 0.3 % (0-4); Lymphocytes # 1.8 K/mcL (0.6-4.6); Lymphocytes % 15.4 %; Mean Corpuscular HGB Conc 35.7 g/dL (31.6-35.5); Mean Corpuscular Hemoglobin 30.5 pg (28.0-33.3); Mean Corpuscular Volume 85.3 fL (83.0-100.0); Monocytes # 1.3 K/mcL (0.0-1.3); Monocytes % 10.9 %; Neutrophils # 8.2 K/mcL (1.6-8.9); Platelet Count 310 K/mcL (140-400); Red Blood Count 4.23 M/mcL (3.82-4.97); Red Cell Distribution Width 12.4 % (11.5-14.5); Segmented Neutrophils % 71.5 %
[2017-10-23 00:29] LABS: Alanine Aminotransferase 20 Units/L (7-52); Albumin 4.1 g/dL (3.5-5.7); Albumin/Globulin Ratio 1.6 (1.1-2.2); Alkaline Phosphatase 70 Units/L (34-104); Aspartate Amino Transferase 29 Units/L (13-39); BUN/Creatinine Ratio 16 (6-26); Bilirubin,Total 0.9 mg/dL (0.3-1.0); Blood Urea Nitrogen 8 mg/dL (8-23); Calcium 9.2 mg/dL (8.6-10.3); Carbon Dioxide 23 mEq/L (23-29); Chloride 83 mEq/L (98-107); Globulin 2.5 g/dL (2.4-3.5); Glucose 133 mg/dL (70-105); Osmolality,Calculated 248 (280-300); Potassium 3.5 mEq/L (3.5-5.1); Total Protein 6.6 g/dL (6.4-8.9); Troponin I < 0.03 ng/mL (< 0.04); eGFR For African Americans > 60 (> 60); eGFR For Non-African Americans > 60 (> 60)
--- NOTE | 2017-10-23 00:37 | Emergency Department Note ---
Disposition Clinical Impression: Acute hyponatremia Disposition: Admitted As Inpatient Forms: ED Satisfaction Letter General Adult HPI - General Chief complaint: ED Nausea/Vomiting/Diarrhea Stated complaint: cough, n/v Time Seen by Provider: 10/22/17 23:26 Source: patient Mode of arrival: wheelchair Limitations: no limitations - History of Present Illness Pain Scale: 0 - Related Data Home Medications Medication Instructions Recorded Confirmed GlipiZIDE [Glipizide ER] 10 mg PO DAILY 01/08/17 01/08/17 Potassium Chloride [K-Tab ER] 20 meq PO DAILY 01/08/17 01/08/17 hydroCHLOROthiazide 25 mg PO DAILY 01/08/17 01/08/17 [Hydrochlorothiazide] Previous Rx's Medication Instructions Recorded Metoprolol [Lopressor] 50 mg PO BID #60 tab 01/09/17 Metoprolol [Lopressor] 50 mg PO BID 20 Days #40 tablet 06/25/17 Allergies Allergy/AdvReac Type Severity Reaction Status Date / Time Sulfa (Sulfonamide Allergy Hives Verified 10/22/17 23:22 Antibiotics) Tetracycline Allergy Hives Verified 10/22/17 23:22 Constitutional: Reports: weakness. Denies: fever, chills Eyes: Denies: eye pain ENT ED: Denies: throat pain, epistaxis, congestion Cardiovascular: Denies: chest pain Respiratory: Reports: cough, sputum production. Denies: dyspnea, hemoptysis, stridor Gastrointestinal: Reports: nausea, vomiting. 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 I agree with the documented findings, disposition and treatment plan as described except to the extent set forth below. Patient seen with emergency medicine resident Dr. Kenneth Bauer, Please see a copy of his note for details of the H&P, ED evaluation, management and disposition. I have independently evaluated the patient and confirmed appropriate portions of the history and physical exam. Briefly: 67-year-old female recently treated for URI she was tetracycline then placed on Levaquin patient having intractable nausea and vomiting patient arrives but nontoxic. Patient got a chem panel which showed a profound hyponatremia of 119 patient has never been this low got a liter of normal saline remainder of the labs essentially within normal limits awaiting chest x- ray and the patient will be admitted for profound hyponatremia Time: 00:35 Vital Signs Temperature 98.4 F 10/22/17 23:20 Pulse Rate 108 10/22/17 23:20 Respiratory Rate 16 10/22/17 23:20 Blood Pressure 189/94 10/22/17 23:20 O2 Sat by Pulse Oximetry 97 10/22/17 23:20 Temperature 98.4 F 10/22/17 23:56 Pulse Rate 108 10/22/17 23:56 Respiratory Rate 16 10/22/17 23:56 Blood Pressure 189/94 10/22/17 23:56 O2 Sat by Pulse Oximetry 98 10/22/17 23:56 Oxygen Delivery Oxygen Delivery Room Air Medical Decision Making - Lab Data Result diagrams: 10/22/17 23:51 10/22/17 23:51 Lab Results 10/22/17 10/22/17 10/22/17 Range/Units 23:51 23:51 23:59 WBC 11.5 H (4.3-11.1) K/mcL RBC 4.23 (3.82-4.97) M/mcL Hgb 12.9 (11.5-15.4) g/dL Hct 36.1 (35.3-44.9) % MCV 85.3 (83.0-100.0) fL MCH 30.5 (28.0-33.3) pg MCHC 35.7 H (31.6-35.5) g/dL RDW 12.4 (11.5-14.5) % Plt Count 310 (140-400) K/mcL MPV 10.0 (9.4-12.4) fL Immature Gran % 0.3 (0-4) % Seg Neutrophils % 71.5 % Lymphocytes % 15.4 % Monocytes % 10.9 % Eosinophils % 1.6 % Basophils % 0.3 % Neutrophils # 8.2 (1.6-8.9) K/mcL Lymphocytes # 1.8 (0.6-4.6) K/mcL Monocytes # 1.3 (0.0-1.3) K/mcL Eosinophils # 0.2 (0.0-0.6) K/mcL Basophils # 0.0 (0.0-0.2) K/mcL VBG pH 7.49 H (7.32-7.42) pH Units VBG pCO2 33 L (41-51) mmHg VBG pO2 152 H (25-50) mmHg VBG HCO3 25 (21-27) mEq/L Sodium 119 L* (136-145) mEq/L Potassium 3.5 (3.5-5.1) mEq/L Chloride 83 L (98-107) mEq/L Carbon Dioxide 23 (23-29) mEq/L BUN 8 (8-23) mg/dL Creatinine 0.51 L (0.60-1.20) mg/dL Est GFR ( Amer) > 60 (> 60) Est GFR (Non-Af Amer) > 60 (> 60) BUN/Creatinine Ratio 16 (6-26) Glucose 133 H (70-105) mg/dL Calculated Osmolality 248 L (280-300) Calcium 9.2 (8.6-10.3) mg/dL Total Bilirubin 0.9 (0.3-1.0) mg/dL AST 29 (13-39) Units/L ALT 20 (7-52) Units/L Alkaline Phosphatase 70 (34-104) Units/L Troponin I < 0.03 (< 0.04) ng/mL Serum Total Protein 6.6 (6.4-8.9) g/dL Albumin 4.1 (3.5-5.7) g/dL Globulin 2.5 (2.4-3.5) g/dL Albumin/Globulin Ratio 1.6 (1.1-2.2)
[2017-10-23 00:38] LABS: Bilirubin,Urine Negative (Negative); Blood,Urine Negative (Negative); Clarity,Urine Clear (Clear); Color,Urine Yellow (Yellow); Glucose,Urine (UA) Normal (Normal); Ketones,Urine 40 mg/dL (Negative); Leukocyte Esterase,Urine Negative (Negative); Nitrite,Urine Negative (Negative); Protein,Urine Negative (Neg-Trace); Specific Gravity,Urine 1.018 (1.010-1.025); Urobilinogen,Urine Normal (Normal)
[2017-10-23] MEDS ORDERED: Dexmedetomidine HCl 400 MCG/100 ML MLS IVC SCH (00:45)
[2017-10-23] MEDS ORDERED: Benzonatate 100 MG CAPSULE PO STA (01:15)
--- NOTE | 2017-10-23 02:31 | Internal Med History&Physical ---
Date of Encounter: 10/23/17 Time of Encounter: 03:00 Internal Medicine - H&P: HPI Chief complaint: cough Admitted From: Home Plans for Post Hospital Care: Home History of present illness: Ms. Booth is a 67 year old female with a past medical history of diabetes, COPD, atrial tachycardia, and hypertension presented to the ED with cough and nausea. Patient states that she has been coughing since last with associated nasal congestion. She says the cough has been constant, nonproductive. She went to her PCP on Thursday and received doxycycline and took it twice and each night that she took that she had coughing throughout the night and was unable to sleep. She called her primary care physician today and stated that she was unable to take the doxycycline due to the coughing and her PCP prescribed her Levaquin which she took one dose today and then proceeded to vomit and came into the ED. She has vomited 6 times today. She has had associated intermittent dizziness and worsening diarrhea. She has been able to keep liquids down but has not been able to eat much for 1 week. Patient denies associated headache, fever, chest pain, shortness of breath. Upon arrival to the ED patient's heart rate was 180 with a blood pressure of 189 /94. Labs showed sodium 119, chloride of 83, ABG showed a pH of 7.49, CO2 of 33 , O2 of 152 with a bicarbonate of 25. Chest x-ray showed no acute processes. In the ED patient was given Tessalon Perles, steroids, Zofran and [address] Julian from nephrology was consultative and recommended fluid restriction. Patient was admitted to the floor for hyponatremia. Past Med Surg Social Fam HX - Past Medical History Medical history: diabetes, hypertension, other Additional medical history: tachcardia Psychiatric history: no psych history - Past Surgical History Surgical History: non-contributory Additional surgical history: tubal - Social History Smoking Status: Never smoker Smokeless Tobacco Status: No Alcohol use: none Drug use: none - Family History Mother Living Status: Hx Family Cardiac Disorders: Yes (cad) Father Living Status: Hx Family Cardiac Disorders: Yes (CAD) Internal Medicine - H&P: Meds GlipiZIDE [Glipizide ER] 10 mg PO DAILY 01/08/17 [History] Potassium Chloride [K-Tab ER] 20 meq PO DAILY 01/08/17 [History] hydroCHLOROthiazide [Hydrochlorothiazide] 25 mg PO DAILY 01/08/17 [History] Metoprolol [Lopressor] 50 mg PO BID #60 tab 01/09/17 [Rx] Metoprolol [Lopressor] 50 mg PO BID 20 Days #40 tablet 06/25/17 [Rx] 3 Allergy/AdvReac Type Severity Reaction Status Date / Time Sulfa (Sulfonamide Allergy Hives Verified 10/22/17 23:22 Antibiotics) Tetracycline Allergy Hives Verified 10/22/17 23:22 All Systems PM: A 10-system review of systems was performed and is negative for pertinent findings except as documented above in the HPI. - Constitutional Vitals: Temp Pulse Resp BP Pulse Ox 98.7 F 93 18 111/62 94 10/23/17 01:55 10/23/17 01:55 10/23/17 01:55 10/23/17 01:55 10/23/17 01:55 Exam: Constitutional: Alert, in no acute distress Head: Normocephalic, atraumatic Heart: Normal, regular rate and rhythm, no murmurs Lungs: Clear to auscultation, no wheezes, rales, or rhonchi Abdomen: Soft, nondistended, nontender, bowel sounds present and normal, no guarding or rigidity. Extremities: No edema, No clubbing, radial pulse +2/4, capillary refill <2sec. Skin: mucous membranes and skin dry, no lesions, no rashes, no jaundice Neurologic: Cranial nerves II through XII grossly intact, strength 5/5 in all extremities Psych: Cooperative with exam, good eye contact, cognitive function intact, speech clear, thought process logical, and goal directed Internal Med - H&P Results - Labs CBC & Chem 7: 10/22/17 23:51 10/23/17 03:58 - Assessment and plan (1) Hyponatremia Current Visit: Yes Status: Acute Assessment and plan: Hyponatremia secondary to hypovolemia. Na= 119. Patient states that she has vomited 7 times today and mucous membranes and skin dry. She has been nauseous for 3 weeks. Plan: - fluids: NS 100ml/hr - nephrology consulted in the ED, awaiting further recommendations - Labs: urine sodium, urine creatinine, urine osmolality, serum osmolality, TSH (2) Upper respiratory infection Current Visit: Yes Status: Acute Assessment and plan: Patient has had coughing, nasal congestion for 7 days. She was only able to take 2 doses of doxycycline as it has made cough more all night long. Plan: - Begin Augmentin - tesslon for cough Qualifiers: URI type: acute nasopharyngitis (common cold) Qualified Code(s): J00 - Acute nasopharyngitis [common cold] (3) Diabetes type 2, controlled Current Visit: Yes Status: Acute Assessment and plan: Plan: - low sliding scale - Accu checks TIDAC and HS - diet: Clear diabetic diet Qualifiers: Diabetes mellitus longterm insulin use: without longterm use Diabetes mellitus complication status: without complication Qualified Code(s): E11.9 - Type 2 diabetes mellitus without complications (4) Diarrhea Current Visit: Yes Status: Chronic Assessment and plan: Chronic diarrhea but acutely worsened. Will test stool cultures as patient has also had N/V but no abdominal pain. Plan: -stool cultures ordered - continue hydration Qualifiers: Diarrhea type: functional diarrhea Qualified Code(s): K59.1 - Functional diarrhea (5) Nausea & vomiting Current Visit: Yes Status: Acute Assessment and plan: In known etiology possibly secondary acute hyponatremia from cerebral edema to Levaquin due to increase frequency of diarrhea. She has been nauseous for 3 weeks but just started vomiting today after taking the Levaquin. Plan: - zofran and phenergan - lipase ordered Qualifiers: Vomiting type: unspecified Vomiting Intractability: non-intractable Qualified Code(s): R11.2 - Nausea with vomiting, unspecified (6) DVT prophylaxis Current Visit: Yes Status: Acute Assessment and plan: Patient is ambulating. ICDs - Time Spent With Patient Total time spent is greater than 50% in coordination of care (as documented) at patient's floor/unit and/or counseling patient:
[2017-10-23 03:32] LABS: Sodium 119 mEq/L (136-145)
[2017-10-23] MEDS ORDERED: Naloxone 0.4 MG/ML INJ IVP PRN (03:51)
[2017-10-23] MEDS ORDERED: Acetaminophen 325 MG TABLET PO PRN (04:01)
[2017-10-23] MEDS ORDERED: Benzonatate 100 MG CAPSULE PO PRN (04:08)
[2017-10-23] MEDS ORDERED: *HR* Dextrose 50 % in Water (Syg) 50 ML SYRINGE IVP PRN (04:16)
[2017-10-23] MEDS ORDERED: Dextrose Gel 15 GM/37.5 ML TUBE PO PRN ×2 (04:16)
[2017-10-23] MEDS ORDERED: D5% in Water 1,000 ML IVC PRN (04:16)
[2017-10-23] MEDS ORDERED: *HR* Promethazine 25 MG/ML VIAL IVP PRN (04:23)
[2017-10-23] MEDS ORDERED: Ondansetron 4 MG/2 ML VIAL IVP PRN (04:23)
[2017-10-23] MEDS: 0.9 % Sodium Chloride 1,000 ML IVC SCH ×2 (04:33→15:04)
[2017-10-23 05:06] LABS: Alanine Aminotransferase 18 Units/L (7-52); Albumin/Globulin Ratio 1.9 (1.1-2.2); Alkaline Phosphatase 63 Units/L (34-104); Aspartate Amino Transferase 22 Units/L (13-39); BUN/Creatinine Ratio 15 (6-26); Bilirubin,Total 0.9 mg/dL (0.3-1.0); Blood Urea Nitrogen 7 mg/dL (8-23); Calcium 8.8 mg/dL (8.6-10.3); Carbon Dioxide 22 mEq/L (23-29); Chloride 88 mEq/L (98-107); Chol/HDL Ratio 2.7 (0-4.9); Cholesterol 110 mg/dL (< 200); Globulin 2.1 g/dL (2.4-3.5); Glucose 110 mg/dL (70-105); HDL Cholesterol 41 mg/dL (40-59); LDL Cholesterol,Calculated 53 mg/dL (0-99); Osmolality,Calculated 255 (280-300); Potassium 3.4 mEq/L (3.5-5.1); Sodium 123 mEq/L (136-145); Total Protein 6.1 g/dL (6.4-8.9); Triglycerides 81 mg/dL (< 150); eGFR For African Americans > 60 (> 60); eGFR For Non-African Americans > 60 (> 60)
[2017-10-23 05:17] LABS: Thyroid Stimulating Hormone 1.582 mcIU/mL (0.340-5.600)
[2017-10-23] MEDS ORDERED: *HR* Metoprolol 5 MG/5 ML VIAL IVP PRN (06:54)
[2017-10-23] MEDS: Insulin LISPRO 300 UNITS/3 ML VIAL SQ SCH ×3 (07:43→16:20)
[2017-10-23] MEDS ORDERED: Amoxicillin/Clavulanate 500 MG TABLET PO SCH (08:00)
[2017-10-23] MEDS: Azithromycin 250 MG TABLET PO SCH (09:15)
[2017-10-23 10:09] LABS: BUN/Creatinine Ratio 11 (6-26); Blood Urea Nitrogen 5 mg/dL (8-23); Calcium 8.3 mg/dL (8.6-10.3); Carbon Dioxide 25 mEq/L (23-29); Chloride 89 mEq/L (98-107); Glucose 166 mg/dL (70-105); Osmolality,Calculated 257 (280-300); Sodium 123 mEq/L (136-145); eGFR For African Americans > 60 (> 60); eGFR For Non-African Americans > 60 (> 60)
--- NOTE | 2017-10-23 10:26 | Nephrology Consult Note ---
<NinaAndria yan Grabiel - Last Filed: 10/23/17 13:47> Date of Encounter: 10/23/17 Time of Encounter: 10:27 Assessment and Plan (1) Hyponatremia Current Visit: Yes Status: Acute Initial NA 119, now 123. Allow salt in diet. Urine Osmo 198 indicating NS is needed for correction, continue at 100/hour. Recheck NA at 1800 today. (2) Diabetes type 2, controlled Current Visit: Yes Status: Acute Serum gluclose 166 on sliding scale insulin. Qualifiers: Diabetes mellitus shelter insulin use: without freight shipping agent use Diabetes mellitus complication status: without complication Qualified Code(s): E11.9 - Type 2 diabetes mellitus without complications (3) Nausea & vomiting Current Visit: Yes Status: Acute Seems resolved. Qualifiers: Vomiting type: unspecified Vomiting Intractability: non-intractable Qualified Code(s): R11.2 - Nausea with vomiting, unspecified History of Present Illness - Reason for Consult Consult date: 10/23/17 hyponatremia Requesting physician: Kathleen Dos Santos - Chief Complaint nausea/vomiting - History of Present Illness Ms. Booth is a 67 year old female with a past medical history of diabetes, COPD, atrial tachycardia, and hypertension presented to the ED with cough and nausea. Patient states that she has been coughing since last with associated nasal congestion. The cough has been constant and is not coughing anthing up. She was prescribed doxycycline and it was stopped because it made cough woren. After one dose of Levaquin she immediately started vomiting. Was told to come to ED for evaluation. She admits to be nauseas for 2-3 weeks at home, emesis just started yesterday. Initial NA was 119, which is the reason for the consult. It is now 123 and a repeat was drawn at 10:00. NS is infusing at 100/hr. Patient is on HCTZ 25 daily and has been on it for "years". She was prescribed this in her 30's by a collaborative physician in [place] because she wasn't voiding "enough" and was getting frequent kidney infections. Has not seen a collaborative physician since. Does not admit to polydipsia. Repeat NA is 123 will continue NS at 100/hr. Past Med Surg Social Fam HX - Past Medical History Medical history: diabetes, hypertension, other Additional medical history: tachcardia Psychiatric history: no psych history - Past Surgical History Surgical History: non-contributory Additional surgical history: tubal - Social History Smoking Status: Never smoker Smokeless Tobacco Status: No Alcohol use: none Drug use: none - Family History Mother Living Status: Hx Family Cardiac Disorders: Yes (cad) Father Living Status: Hx Family Cardiac Disorders: Yes (CAD) Medications and Allergies GlipiZIDE [Glipizide ER] 10 mg PO DAILY 01/08/17 [History] Potassium Chloride [K-Tab ER] 20 meq PO DAILY 01/08/17 [History] hydroCHLOROthiazide [Hydrochlorothiazide] 25 mg PO DAILY 01/08/17 [History] Metoprolol [Lopressor] 50 mg PO BID #60 tab 01/09/17 [Rx] Atorvastatin [Lipitor] 40 mg PO HS 10/23/17 [History] Diltiazem CD (24hr) [Cardizem CD] 120 mg PO DAILY 10/23/17 [History] Metformin HCl [Glucophage] 1,000 mg PO BID 10/23/17 [History] levoFLOXacin [Levaquin] 750 mg PO DAILY 10/23/17 [History] 3 Allergy/AdvReac Type Severity Reaction Status Date / Time Sulfa (Sulfonamide Allergy Hives Verified 10/22/17 23:22 Antibiotics) Tetracycline Allergy Hives Verified 10/22/17 23:22 Review of Systems Constitutional: fatigue, no anorexia Nose, mouth and throat: nasal congestion, nasal discharge Cardiovascular: no chest pain, no dyspnea, no edema Respiratory: cough, no hemoptysis Gastrointestinal: diarrhea, nausea, no melena Exam - Vital Signs Vital signs: Initial Vital Signs Temp Pulse Resp BP Pulse Ox 98.4 F 108 16 189/94 97 10/22/17 23:20 10/22/17 23:20 10/22/17 23:20 10/22/17 23:20 10/22/17 23:20 Vital Signs - Last 8 Hours Temp Pulse Resp BP Pulse Ox 10/23/17 06:40 98.9 F 104 20 133/75 96 10/23/17 03:44 98.1 F 97 18 148/85 92 Intake and Output 10/22/17 10/23/17 10/23/17 23:59 07:59 15:59 Intake Total 480 / 480 Balance 480 / 480 Intake: Oral 480 / 480 Other: Meal Breakfast Percent of Meal Consumed 95% Weight 88.932 kg Blood Glucose* 117 Patient Weight 10/23/17 23:59 Weight 88.932 kg - General Appearance General appearance: well-developed, well-nourished, appears started age EENT: ATNC, hearing intact, vision intact Neck: supple Respiratory: clear Cardiology: no edema Gastrointestinal: normoactive bowel sounds, no tenderness, no guarding Integumentary: no rash, warm and dry Neurologic: alert and oriented x3 Psychiatric: mood/affect appropriate, cooperative Results - Lab Results 10/22/17 23:51 10/23/17 09:36 Most recent lab results Calcium 8.3 mg/dL (8.6-10.3) L 10/23/17 09:36 Urine Sodium 54.1 mEq/L 10/23/17 05:24 Consult Discharge Plan - Plan Referrals: Kenneth Caballero DO [Primary Care Provider] - <Vin Green - Last Filed: 10/24/17 09:39> Date of Encounter: 10/23/17 Assessment and Plan (1) Hyponatremia Current Visit: Yes Status: Acute Exam - Vital Signs Vital signs: Initial Vital Signs Temp Pulse Resp BP Pulse Ox 98.4 F 108 16 189/94 97 10/22/17 23:20 10/22/17 23:20 10/22/17 23:20 10/22/17 23:20 10/22/17 23:20 Vital Signs - Last 8 Hours Temp Pulse Resp BP Pulse Ox 10/24/17 07:26 98.2 F 80 18 113/78 92 Intake and Output 10/23/17 10/24/17 10/24/17 23:59 07:59 15:59 Intake Total 200 / 200 200 / 200 Output Total 800 / 800 900 / 900 Balance -600 / -600 -700 / -700 Intake: Oral 200 / 200 200 / 200 Output: Urine 800 / 800 900 / 900 Other: Weight 89.086 kg Blood Glucose* 88 140 Patient Weight 10/24/17 23:59 Weight 89.086 kg Results - Lab Results 10/24/17 05:29 10/24/17 05:29 Most recent lab results Calcium 8.7 mg/dL (8.6-10.3) 10/24/17 05:29 Urine Sodium 54.1 mEq/L 10/23/17 05:24 - Attending Attestation I examined this patient and my medical decision-making was reviewed with the Resident Physician/OUTREACH WORKER. I agree with the documented findings, disposition and treatment plan as described except to the extent set forth below. Pt seen and examined, in brief : 67 y o female with PMH of DM, HTN et al. admitted with persistent cough and nausea and found with sodium of 119. No prior history of hyponatremia noted. She is also a non-smoker with CXR clear. Exam unremarkable except for fits of coughing throughout exam. Workup so far consistent with a hypovolemic state while on HCTZ. Agree with serial sodium checks, currently at 123. Continue IVF with NS. Liberalize sodium in diet.
--- NOTE | 2017-10-23 10:49 | Internal Med Progress Note ---
Date of Encounter: 10/23/17 Time of Encounter: 10:40 - Assessment and plan (1) Hyponatremia Current Visit: Yes Status: Acute Assessment and plan: Hypoosmolar, hypovolemic due to poor oral intake in the setting of diuretic use na 119-123-123 Continue to monitor q6-q8h continue IVF Hold HCTZ Renal input appreciated (2) Diabetes type 2, controlled Current Visit: Yes Status: Chronic Assessment and plan: ADA diet FS ACHS SSI Qualifiers: Diabetes mellitus long term care pharmacist insulin use: without skilled nursing use Diabetes mellitus complication status: without complication Qualified Code(s): E11.9 - Type 2 diabetes mellitus without complications (3) Diarrhea Current Visit: Yes Status: Chronic Assessment and plan: Chronic diarrhea but acutely worsened Follow stool work up Continue to monitor Qualifiers: Diarrhea type: functional diarrhea Qualified Code(s): K59.1 - Functional diarrhea (4) DVT prophylaxis Current Visit: Yes Status: Acute Assessment and plan: Lovenox SQ (5) Nausea & vomiting Current Visit: Yes Status: Acute Assessment and plan: Possibly viral Continue supportive care Improving Qualifiers: Vomiting type: unspecified Vomiting Intractability: non-intractable Qualified Code(s): R11.2 - Nausea with vomiting, unspecified (6) Upper respiratory infection Current Visit: Yes Status: Acute Assessment and plan: patient grisel has bronchitis with cough and persistent cough, chest is CTAb and CXR has no infiltrates Azithromycin 500mfg daily -Day 1 Continue tessalon pearls/robitussin DM Qualifiers: URI type: unspecified URI Qualified Code(s): J06.9 - Acute upper respiratory infection, unspecified (7) Hypokalemia Current Visit: Yes Status: Acute Assessment and plan: Replaced po, continue to monitor (8) Atrial tachycardia Current Visit: Yes Status: Acute Assessment and plan: on CCB, continue same (9) HTN (hypertension) Current Visit: Yes Status: Chronic Assessment and plan: continue home meds except HCTZ Qualifiers: Hypertension type: essential hypertension Qualified Code(s): I10 - Essential (primary) hypertension - Time Spent With Patient Total time spent is greater than 50% in coordination of care (as documented) at patient's floor/unit and/or counseling patient: - Subjective Interval history: No new complains Continues to cough persistently Admitted and being managed for acute hypoosmolar, hypovolemic hyponatremia and bronchitis - Constitutional Vitals: Temp Pulse Resp BP Pulse Ox 98.9 F 104 20 133/75 96 10/23/17 06:40 10/23/17 06:40 10/23/17 06:40 10/23/17 06:40 10/23/17 06:40 General appearance: Present: A&O X 3, pleasant, no acute distress - Head Head exam: Present: atraumatic, normocephalic - Eye Eye exam: Present: PERRL, conjuntiva pink, sclera anicteric Pupils: Present: PERRL - Neck Neck exam general surgery: Present: supple, trachea midline. Absent: lymphadenopathy - Respiratory Respiratory exam: Present: CTAB. Absent: accessory muscle use, rales, rhonchi, wheezes - Cardiovascular Cardiovascular exam: Present: RRR, +S1, +S2. Absent: diastolic murmur, gallop, rubs, systolic murmur - GI/Abdominal GI/Abdominal exam: Present: normal bowel sounds, soft, no peritoneal signs. Absent: distended, tenderness - Extremities Exam Extremities exam: Present: warm, radial pulses palpable and symmetrical. Absent : calf tenderness, cyanotic, pedal edema - Neurological Exam Neurological exam: Present: alert, CN II-XII intact, oriented X3, no focal deficits. Absent: pronater drift, facial droop, speech deficit - Skin Skin exam: Present: dry, intact Internal Medicine: Result - Labs CBC & Chem 7: 10/22/17 23:51 10/23/17 09:36 Labs: BMP 10/23/17 10/23/17 03:58 09:36 Sodium 123 L 123 L Potassium 3.4 L 3.0 L Chloride 88 L 89 L Carbon Dioxide 22 L 25 BUN 7 L 5 L Creatinine 0.48 L 0.46 L Glucose 110 H 166 H Calcium 8.8 8.3 L Liver Function 10/23/17 Range/Units 03:58 Total Bilirubin 0.9 (0.3-1.0) mg/dL AST 22 (13-39) Units/L ALT 18 (7-52) Units/L Alkaline Phosphatase 63 (34-104) Units/L Albumin 4.0 (3.5-5.7) g/dL Consult Discharge Plan - Plan Referrals: Kenneth Caballero DO [Primary Care Provider] -
[2017-10-23] MEDS: Diltiazem CD (24hr) 120 MG CAPSULE PO SCH (11:38)
[2017-10-23] MEDS: Benzonatate 100 MG CAPSULE PO PRN ×2 (13:28→21:55)
[2017-10-23] MEDS ORDERED: *HR* Enoxaparin 40 MG/0.4 ML SYRINGE SQ ONE (14:45)
[2017-10-24] MEDS: Insulin LISPRO 300 UNITS/3 ML VIAL SQ SCH ×5 (00:24→20:46)
[2017-10-24] MEDS ORDERED: GuaiFENesin/Codeine Oral Soln 5 ML UDC PO PRN (00:41)
[2017-10-24] MEDS: *HR* Enoxaparin 40 MG/0.4 ML SYRINGE SQ SCH (05:27)
[2017-10-24 06:01] LABS: Basophils % 0.3 %; Eosinophils # 0.2 K/mcL (0.0-0.6); Eosinophils % 1.8 %; Hematocrit 32.6 % (35.3-44.9); Immature Granulocytes % 0.2 % (0-4); Lymphocytes # 2.9 K/mcL (0.6-4.6); Lymphocytes % 33.3 %; Mean Corpuscular HGB Conc 34.4 g/dL (31.6-35.5); Mean Corpuscular Hemoglobin 29.4 pg (28.0-33.3); Mean Corpuscular Volume 85.6 fL (83.0-100.0); Mean Platelet Volume 9.5 fL (9.4-12.4); Monocytes # 1.1 K/mcL (0.0-1.3); Monocytes % 12.9 %; Neutrophils # 4.5 K/mcL (1.6-8.9); Platelet Count 284 K/mcL (140-400); Red Blood Count 3.81 M/mcL (3.82-4.97); Red Cell Distribution Width 12.9 % (11.5-14.5); Segmented Neutrophils % 51.5 %
[2017-10-24 06:02] LABS: Hemoglobin 11.2 g/dL (11.5-15.4)
[2017-10-24] MEDS: GuaiFENesin/Codeine Oral Soln 5 ML UDC PO PRN ×5 (06:07→22:55)
[2017-10-24 06:21] LABS: BUN/Creatinine Ratio 6 (6-26); Blood Urea Nitrogen 3 mg/dL (8-23); Calcium 8.7 mg/dL (8.6-10.3); Carbon Dioxide 23 mEq/L (23-29); Chloride 98 mEq/L (98-107); Glucose 126 mg/dL (70-105); Osmolality,Calculated 268 (280-300); Potassium 3.6 mEq/L (3.5-5.1); Sodium 130 mEq/L (136-145); eGFR For African Americans > 60 (> 60); eGFR For Non-African Americans > 60 (> 60)
[2017-10-24] MEDS: Diltiazem CD (24hr) 120 MG CAPSULE PO SCH (09:09)
[2017-10-24] MEDS: Azithromycin 250 MG TABLET PO SCH (09:09)
--- NOTE | 2017-10-24 09:34 | Nephrology Progress Note ---
Date of Encounter: 10/24/17 Time of Encounter: 10:00 - Assessment and Plan (1) Hyponatremia Current Visit: Yes Status: Acute Sodium improving with IVF and currently at 130 which is great and can be discontinued today Encourage increased sodium in diet, may have salt packets Continue to hold HCTZ (2) Nausea & vomiting Current Visit: Yes Status: Acute Resolved Qualifiers: Vomiting type: unspecified Vomiting Intractability: non-intractable Qualified Code(s): R11.2 - Nausea with vomiting, unspecified (3) Sinusitis Current Visit: Yes Status: Acute Per primary team Qualifiers: Chronicity: unspecified Qualified Code(s): J32.9 - Chronic sinusitis, unspecified Subjective Interval history: Pt seen and examined with no more coughing spells after receiving "codeine" and zithromax. Now eager to go home. Objective - Vital Signs Vital signs: Vital Signs Temp Pulse Resp BP Pulse Ox 10/24/17 07:26 98.2 F 80 18 113/78 92 10/24/17 00:22 98.9 F 88 18 121/76 94 10/23/17 19:12 98.8 F 108 18 143/81 94 Intake and Output 10/23/17 10/24/17 10/24/17 23:59 07:59 15:59 Intake Total 200 / 200 200 / 200 Output Total 800 / 800 900 / 900 Balance -600 / -600 -700 / -700 Intake: Oral 200 / 200 200 / 200 Output: Urine 800 / 800 900 / 900 Other: Weight 89.086 kg Blood Glucose* 88 140 Patient Weight 10/24/17 23:59 Weight 89.086 kg - General Appearance General appearance: Present: well-developed, well-nourished EENT: Present: ATNC, mucous membranes moist Neck: Present: no JVD, supple Respiratory: Present: clear Cardiology: Present: no edema, normal S1, normal S2 Gastrointestinal: Present: no tenderness, no guarding, obese Integumentary: Present: warm and dry Neurologic: Present: no focal deficit Musculoskeletal: Present: no deformities Psychiatric: Present: mood/affect appropriate, cooperative - Lab 10/24/17 05:29 10/24/17 05:29 Most recent lab results Calcium 8.7 mg/dL (8.6-10.3) 06/30/18 05:29 Urine Sodium 54.1 mEq/L 10/23/17 05:24 Consult Discharge Plan - Plan Referrals: Kenneth Caballero DO [Primary Care Provider] -
--- NOTE | 2017-10-24 11:31 | Electrocardiograph Report ---
[place] [id number] Test Date: 2017-10-23 Pat Name: Kathi Booth Department: 104 Room: 2A11 Gender: F Shingle Grader: SAJAN : 1950 Requested By: Kenneth Bauer Order Number: [id number] Reading MD: Moises Newton Measurements Intervals [place] Rate: 102 P: 54 MI: 173 QRS: 50 QRSD: 97 T: 34 QT: 361 QTc: 420 Interpretive Statements SINUS TACHYCARDIA ABNORMAL RHYTHM ECG Electronically Signed On 10-24-2017 11:29:44 EDT by Moises Newton
[2017-10-24] MEDS ORDERED: Ipratropium/Albuterol Neb 3 ML IH ONE (11:40)
--- NOTE | 2017-10-24 11:51 | Internal Med Progress Note ---
Date of Encounter: 10/24/17 Time of Encounter: 11:51 - Assessment and plan (1) Hyponatremia Current Visit: Yes Status: Acute Assessment and plan: Hypoosmolar, hypovolemic due to poor oral intake in the setting of diuretic use na [phone] Continue to Hold HCTZ Discontinue IVF Renal input appreciated (2) Diabetes type 2, controlled Current Visit: Yes Status: Chronic Assessment and plan: ADA diet FS ACHS SSI Qualifiers: Diabetes mellitus assistant terminal manager insulin use: without fdc use Diabetes mellitus complication status: without complication Qualified Code(s): E11.9 - Type 2 diabetes mellitus without complications (3) Diarrhea Current Visit: Yes Status: Resolved Assessment and plan: Chronic diarrhea but acutely worsened Resolved Stool is not liquid Continue to monitor Qualifiers: Diarrhea type: functional diarrhea Qualified Code(s): K59.1 - Functional diarrhea (4) DVT prophylaxis Current Visit: Yes Status: Acute Assessment and plan: Lovenox SQ (5) Nausea & vomiting Current Visit: Yes Status: Resolved Assessment and plan: Possibly viral resolved Continue supportive care Qualifiers: Vomiting type: unspecified Vomiting Intractability: non-intractable Qualified Code(s): R11.2 - Nausea with vomiting, unspecified (6) Upper respiratory infection Current Visit: Yes Status: Acute Assessment and plan: patient grisel has bronchitis with cough and persistent cough, chest is CTAb and CXR has no infiltrates Azithromycin 500mfg daily -Day 2 Continue tessalon pearls/robitussin DM Qualifiers: URI type: unspecified URI Qualified Code(s): J06.9 - Acute upper respiratory infection, unspecified (7) Hypokalemia Current Visit: Yes Status: Resolved Assessment and plan: Replaced po, continue to monitor (8) Atrial tachycardia Current Visit: Yes Status: Acute Assessment and plan: on CCB, continue same (9) HTN (hypertension) Current Visit: Yes Status: Chronic Assessment and plan: continue home meds except HCTZ Qualifiers: Hypertension type: essential hypertension Qualified Code(s): I10 - Essential (primary) hypertension - Time Spent With Patient Total time spent is greater than 50% in coordination of care (as documented) at patient's floor/unit and/or counseling patient: - Subjective Interval history: No new complains Continues to cough persistently Admitted and being managed for acute hypoosmolar, hypovolemic hyponatremia and bronchitis na now 130 She continues to have hacking cough, unproductive - Constitutional Vitals: Temp Pulse Resp BP Pulse Ox 98.1 F 76 18 113/72 95 10/24/17 11:13 10/24/17 11:13 10/24/17 11:13 10/24/17 11:13 10/24/17 11:13 General appearance: Present: mild distress (from cough), A&O X 3, pleasant - Head Head exam: Present: atraumatic, normocephalic - Eye Eye exam: Present: PERRL, conjuntiva pink, sclera anicteric Pupils: Present: PERRL - Neck Neck exam general surgery: Present: supple, trachea midline. Absent: lymphadenopathy - Respiratory Respiratory exam: Present: CTAB. Absent: accessory muscle use, rales, rhonchi, wheezes - Cardiovascular Cardiovascular exam: Present: RRR, +S1, +S2. Absent: diastolic murmur, gallop, rubs, systolic murmur - GI/Abdominal GI/Abdominal exam: Present: normal bowel sounds, soft, no peritoneal signs. Absent: distended, tenderness - Extremities Exam Extremities exam: Present: warm, radial pulses palpable and symmetrical. Absent : calf tenderness, cyanotic, pedal edema - Neurological Exam Neurological exam: Present: alert, CN II-XII intact, oriented X3, no focal deficits. Absent: pronater drift, facial droop, speech deficit - Skin Skin exam: Present: dry, intact Internal Medicine: Result - Labs CBC & Chem 7: 10/24/17 05:29 10/24/17 05:29 Labs: Short CBC 10/24/17 Range/Units 05:29 WBC 8.8 (4.3-11.1) K/mcL Hgb 11.2 L D (11.5-15.4) g/dL Hct 32.6 L (35.3-44.9) % Plt Count 284 (140-400) K/mcL Neutrophils # 4.5 (1.6-8.9) K/mcL BMP 10/23/17 10/24/17 17:36 05:29 Sodium 128 L 130 L Potassium 3.6 Chloride 98 Carbon Dioxide 23 BUN 3 L Creatinine 0.47 L Glucose 126 H Calcium 8.7 Consult Discharge Plan - Plan Referrals: Kenneth Caballero DO [Primary Care Provider] -
[2017-10-25] MEDS: GuaiFENesin/Codeine Oral Soln 5 ML UDC PO PRN (03:03)
[2017-10-25] MEDS: *HR* Enoxaparin 40 MG/0.4 ML SYRINGE SQ SCH (05:35)
[2017-10-25 07:21] LABS: Basophils # 0.1 K/mcL (0.0-0.2); Basophils % 0.5 %; Eosinophils # 0.4 K/mcL (0.0-0.6); Eosinophils % 4.3 %; Hematocrit 33.1 % (35.3-44.9); Hemoglobin 11.1 g/dL (11.5-15.4); Immature Granulocytes % 0.3 % (0-4); Lymphocytes # 2.8 K/mcL (0.6-4.6); Lymphocytes % 30.1 %; Mean Corpuscular HGB Conc 33.5 g/dL (31.6-35.5); Mean Corpuscular Hemoglobin 29.5 pg (28.0-33.3); Mean Platelet Volume 9.4 fL (9.4-12.4); Monocytes # 1.1 K/mcL (0.0-1.3); Monocytes % 11.7 %; Neutrophils # 4.9 K/mcL (1.6-8.9); Platelet Count 283 K/mcL (140-400); Red Blood Count 3.76 M/mcL (3.82-4.97); Red Cell Distribution Width 13.1 % (11.5-14.5); Segmented Neutrophils % 53.1 %
[2017-10-25 07:29] VITALS: BP 134/71
[2017-10-25 07:38] LABS: BUN/Creatinine Ratio 14 (6-26); Blood Urea Nitrogen 7 mg/dL (8-23); Calcium 8.9 mg/dL (8.6-10.3); Carbon Dioxide 26 mEq/L (23-29); Chloride 99 mEq/L (98-107); Glucose 138 mg/dL (70-105); Osmolality,Calculated 276 (280-300); Potassium 3.6 mEq/L (3.5-5.1); Sodium 133 mEq/L (136-145); eGFR For African Americans > 60 (> 60); eGFR For Non-African Americans > 60 (> 60)
[2017-10-25] MEDS: Insulin LISPRO 300 UNITS/3 ML VIAL SQ SCH ×2 (07:58→11:32)
[2017-10-25] MEDS: Azithromycin 250 MG TABLET PO SCH (08:03)
[2017-10-25] MEDS: Diltiazem CD (24hr) 120 MG CAPSULE PO SCH (08:03)
--- NOTE | 2017-10-25 09:50 | Nephrology Progress Note ---
Date of Encounter: 10/25/17 Time of Encounter: 09:30 - Assessment and Plan (1) Hyponatremia Current Visit: Yes Status: Acute Sodium improving with IVF and currently at 130 which is great and can be discontinued today Encourage increased sodium in diet, may have salt packets Continue to hold HCTZ (2) Nausea & vomiting Current Visit: Yes Status: Resolved Resolved Qualifiers: Vomiting type: unspecified Vomiting Intractability: non-intractable Qualified Code(s): R11.2 - Nausea with vomiting, unspecified (3) Sinusitis Current Visit: Yes Status: Acute Per primary team Qualifiers: Chronicity: unspecified Qualified Code(s): J32.9 - Chronic sinusitis, unspecified Subjective Interval history: Pt seen and examined with no more coughing spells after receiving "codeine" and zithromax. Now eager to go home. Objective - Vital Signs Vital signs: Vital Signs Temp Pulse Resp BP Pulse Ox 10/25/17 07:28 98.7 F 93 18 134/71 95 10/25/17 03:53 98.8 F 92 18 103/68 96 10/24/17 23:41 98.7 F 88 18 107/66 92 10/24/17 18:32 97.7 F 92 18 135/50 94 10/24/17 16:08 98.5 F 84 23 122/77 95 10/24/17 15:23 18 95 10/24/17 11:13 98.1 F 76 18 113/72 95 Intake and Output 10/24/17 10/25/17 10/25/17 23:59 07:59 15:59 Intake Total 300 / 300 30 / 30 240 / 240 Balance 300 / 300 30 / 30 240 / 240 Intake: Oral 300 / 300 30 / 30 240 / 240 Other: Meal Dinner Breakfast Percent of Meal Consumed 100% 100% Weight 89.267 kg Blood Glucose* 146 137 Patient Weight 10/25/17 23:59 Weight 89.267 kg - Lab 10/25/17 06:53 10/25/17 06:53 Most recent lab results Calcium 8.9 mg/dL (8.6-10.3) 10/25/17 06:53 Urine Sodium 54.1 mEq/L 10/23/17 05:24 Consult Discharge Plan - Plan Referrals: Kenneth Caballero DO [Primary Care Provider] -
--- NOTE | 2017-10-25 11:19 | Discharge Summary ---
- NOTES TO OUTPATIENT PROVIDER Notes to Outpatient Provider: Admitted for acute hyponatremia, Na 119, and bronchitis. Na is now 133, and bronchitis improved. Discharged with azithromycin and guainifesin. HCTZ has been discontinued Date of Encounter: 10/25/17 Time of Encounter: 11:18 - Discharge Diagnosis (1) Hyponatremia Priority: Primary Status: Resolved (2) Diabetes type 2, controlled Priority: Secondary Status: Chronic Qualifiers: Diabetes mellitus detention insulin use: without terminal supervisor use Diabetes mellitus complication status: without complication Qualified Code(s): E11.9 - Type 2 diabetes mellitus without complications (3) Diarrhea Priority: Primary Status: Resolved Qualifiers: Diarrhea type: functional diarrhea Qualified Code(s): K59.1 - Functional diarrhea (4) DVT prophylaxis Priority: Primary Status: Acute (5) Nausea & vomiting Priority: Primary Status: Resolved Qualifiers: Vomiting type: unspecified Vomiting Intractability: non-intractable Qualified Code(s): R11.2 - Nausea with vomiting, unspecified (6) Upper respiratory infection Priority: Primary Status: Acute Qualifiers: URI type: unspecified URI Qualified Code(s): J06.9 - Acute upper respiratory infection, unspecified (7) Hypokalemia Priority: Primary Status: Resolved (8) Atrial tachycardia Priority: Secondary Status: Chronic (9) HTN (hypertension) Priority: Secondary Status: Chronic Qualifiers: Hypertension type: essential hypertension Qualified Code(s): I10 - Essential (primary) hypertension Hospital course: Ms. Booth is a 67 year old female who was admitted for acute hypovolemic hopoosmolar hyponatremia She also had URI, Nausea, vomiting, diarrhea, all of which have resolved She was managed with IVF and discontination of home HCTZ URi was managed with azithromycin and robitussin She is seen and evaluated at the bedside this morning, she has no new complains , URi has improved and sodium has improved from 119 to 133 over 4 days Follow up with PCP Discharge discussed with: patient, nurse - Time Spent with Patient Total time spent providing and/or coordinating discharge services: Less than 30 minutes - Discharge Medications Prescriptions: Azithromycin [Zithromax] 500 mg PO DAILY #3 tablet Benzonatate [Tessalon] 200 mg PO TID PRN #10 capsule PRN Reason: Cough GuaiFENesin/Codeine [ROBITUSSIN w/CODEINE] 10 ml PO Q4H PRN 3 Days #1 bottle PRN Reason: Cough #2 Home Medications: GlipiZIDE [Glipizide ER] 10 mg PO DAILY 01/08/17 [History] Potassium Chloride [K-Tab ER] 20 meq PO DAILY 01/08/17 [History] Metoprolol [Lopressor] 50 mg PO BID #60 tab 01/09/17 [Rx] Atorvastatin [Lipitor] 40 mg PO HS 10/23/17 [History] Diltiazem CD (24hr) [Cardizem CD] 120 mg PO DAILY 10/23/17 [History] Metformin HCl [Glucophage] 1,000 mg PO BID 10/23/17 [History] Azithromycin [Zithromax] 500 mg PO DAILY #3 tablet 10/25/17 [Rx] Benzonatate [Tessalon] 200 mg PO TID PRN #10 capsule 10/25/17 [Rx] GuaiFENesin/Codeine [ROBITUSSIN w/CODEINE] 10 ml PO Q4H PRN 3 Days #1 bottle 05/14 [Rx] Allergies/Adverse Reactions: 3 Allergy/AdvReac Type Severity Reaction Status Date / Time Sulfa (Sulfonamide Allergy Hives Verified 10/22/17 23:22 Antibiotics) Tetracycline Allergy Hives Verified 10/22/17 23:22 Date of admission: 10/23/17 17:05 Primary care physician: Laura Rios Discharging clinician: Wilmer Zapata Anticipated date of discharge: 10/25/17 - Constitutional Vitals: Temp Pulse Resp BP Pulse Ox 98.7 F 93 18 134/71 95 10/25/17 07:28 10/25/17 07:28 10/25/17 07:28 10/25/17 07:28 10/25/17 07:28 General appearance: Present: A&O X 3, pleasant, no acute distress - Head Head exam: Present: atraumatic, normocephalic - Eye Eye exam: Present: PERRL, conjuntiva pink, sclera anicteric Pupils: Present: PERRL - Neck Neck exam general surgery: Present: supple, trachea midline. Absent: lymphadenopathy - Respiratory Respiratory exam: Present: CTAB. Absent: accessory muscle use, rales, rhonchi, wheezes - Cardiovascular Cardiovascular exam: Present: RRR, +S1, +S2. Absent: diastolic murmur, gallop, rubs, systolic murmur - GI/Abdominal GI/Abdominal exam: Present: normal bowel sounds, soft, no peritoneal signs. Absent: distended, tenderness - Extremities Exam Extremities exam: Present: warm, radial pulses palpable and symmetrical. Absent : calf tenderness, cyanotic, pedal edema - Neurological Exam Neurological exam: Present: alert, CN II-XII intact, oriented X3, no focal deficits. Absent: pronater drift, facial droop, speech deficit - Skin Skin exam: Present: dry, intact - Patient Status Disposition: Home, Self-Care Condition: Good Functional capacity at discharge: independent ambulation Overall status at discharge: patient is back to baseline - Discharge Instructions Instructions: Azithromycin (By mouth), Acute Bronchitis (DC) Follow Up With: Kenneth Caballero DO [Primary Care Provider] - - Diet and Activity Activity: resume usual activities as tolerated Diet: low salt diet
== END 2017-10-25 12:13 | disposition home or self-care (01) | DRG 202 ==
LOC: EMEROO 23:19 → 2ANU 23:19 → SUATTDRO 10-23 17:05 → 2ANU 10-24 20:48
PROVIDERS: ADMIT Family Medicine; ATTEND Internal Medicine